=== PATIENT | male | born 1940 | race Caucasian/White ===

== ENCOUNTER → 2023-12-13 | Outpatient (CLI) | payer MEDICARE ==
--- NOTE | 2023-12-17 16:17 | US ---
EXAMINATION TYPE: US kidneys/renal and bladder DATE OF EXAM: 12/13/2023 COMPARISON: NONE CLINICAL INDICATION: Male, 83 years old with history of N17.9 ACUTE KIDNEY FAILURE, UNSPECIFIED; KARYNA EXAM MEASUREMENTS: Right Kidney: 10.1 x 5.8 x 5.5 cm Left Kidney: 10.0 x 5.0 x 5.1 cm Right Kidney: No hydronephrosis or masses seen Left Kidney: Anechoic area seen upper pole: 1.5 x 1.4 x 1.3 cm. Bladder: Appears anechoic. Wall appears slightly thickened versus due to bladder being completely ful l? - Measures 0.37 cm. Bilateral Jets seen: Yes No hydronephrosis or solid masses involving both kidneys. No nephrolithiasis. Simple cyst within the superior pole of the left kidney measuring up to 1.5 cm. Urinary bladder is anechoic and underdistend ed with slightly diffuse thickened wall. Both ureteral jets are identified. IMPRESSION: 1. No hydronephrosis or nephrolithiasis. 2. Simple left renal cyst. 3. Underdistended urinary bladder with wall thickening which may related to underdistention versus cy stitis. Correlate with urinalysis.
== END | disposition home or self-care (01) ==
LOC: RADUSWWP 13:28
PROVIDERS: ATTEND Internal Medicine
DX: N28.1 Cyst of kidney, acquired (principal); N17.9 Acute kidney failure, unspecified; N32.89 Other specified disorders of bladder
CPT/HCPCS: 76770